=== PATIENT | male | born 1990 | race Caucasian/White ===

== ENCOUNTER 2021-07-17 20:36 | Emergency (ER) | payer SELFPAY ==
[~2021-07-17] VITALS: Ht 170.2 cm; Wt 81.6 kg
[2021-07-17 20:40] VITALS: BP 146/84
--- NOTE | 2021-07-17 20:40 | NUR ---
TO LOBBY A/W BED VIA WHEELCHAIR
--- NOTE | 2021-07-18 00:09 | NUR ---
ATTEMPTED TO DO ACCUCHECK FOR PT. PT CANNOT BE FOUND IN LOBBY OR OUTSIDE.
--- NOTE | 2021-07-18 00:21 | NUR ---
NO ANSWER FROM PT IN LOBBY OR OUTSIDE.
== END 2021-07-18 00:21 | disposition left against medical advice (07) ==
LOC: MED 20:36
DX: F15.10 Other stimulant abuse, uncomplicated (principal); Z53.21 Procedure and treatment not carried out due to patient leaving prior to being seen by health care provider